=== PATIENT | male | born 1985 | race Caucasian/White ===

== ENCOUNTER 2020-03-23 15:47 | Emergency (ER) | payer SELFPAY ==
[~2020-03-23] VITALS: Ht 170.2 cm; Wt 67.1 kg
[2020-03-23 16:10] VITALS: BP 119/78
--- NOTE | 2020-03-23 16:28 | NUR ---
PT IN TENT FOR COVID PRECAUTIONS
--- NOTE | 2020-03-23 16:37 | NUR ---
34 Y/O MALE FROM HOME C/O ANXIETY WITH SOB, STATES HE IS FEELING ANXIOUS BECAUSE IS COVID+. RR EVEN AND UNLABORED, AWAKE AND ALERT. NO C/O PAIN. VSS MEDHX: DENIES
--- NOTE | 2020-03-23 16:56 | NUR ---
COVID 19 SWAB COLLECTED
--- NOTE | 2020-03-23 16:56 | NUR ---
Patient discharged with v/s stable. Written and verbal after care instructions given and explained. Patient alert, oriented and verbalized understanding of instructions. Ambulatory with steady gait. All questions addressed prior to discharge. ID band removed. Patient advised to follow up with PMD. Rx of ROBITUSSIN 10MG AND ACETAMINOPHEN 500MG given. Patient educated on indication of medication including possible reaction and side effects. Opportunity to ask questions provided and answered.
[2020-03-23 16:57] VITALS: BP 119/78
== END 2020-03-23 16:56 | disposition home or self-care (01) ==
LOC: MED 15:47 → EEVIPCON 15:47 → MED 16:56
DX: B34.9 Viral infection, unspecified (principal); Z20.828 Contact with and (suspected) exposure to other viral communicable diseases; F41.9 Anxiety disorder, unspecified
CPT/HCPCS: 99283; U0003

== ENCOUNTER 2020-04-30 04:05 | Inpatient (IN) | payer OTHER, SELFPAY ==
--- NOTE | 2020-04-23 19:15 | NUR ---
RECEIVED PT AAOX4 , NID - O2 SAT WNL , IV SITE INTACT AND PATENT ON TELE MONITOR - ST , W/ ON GOING K+ RIDER TIV , - C/O OF PAIN ON IV SITE - IV SITE ASSESSED - STILL IN GOOD SHAPE - WILL REFER . SAFETY MEASURES IN PLACE - FALL RISK - CALL LIGHT / URINAL WITHIN REACH - REMINDS HIM TO USE OF CALL LIGHT WHEN HE WANT TO TO TO REST ROOM . PLAN OF CARE DISCUSSED AND VERBALIZE UNDERSTANDING . WILL CONT. TO MONITOR.
[~2020-04-30] VITALS: Ht 172.7 cm; Wt 67.6 kg
[2020-04-30] MEDS: POTASSIUM CHLORIDE 40 MEQ, LIDOCAINE MPF 1% 25 MG in NACL 0.9% 250 ML IV SCH ×2 (00:23→17:31)
--- NOTE | 2020-04-30 04:11 | NUR ---
PT ELEAZAR BLS. TAKEN TO BED 8
--- NOTE | 2020-04-30 04:11 | NUR ---
34 Y/O MALE BIBA C/O BILAT LEG WEAKNESS X 2HRS AGO. DENIES PAIN BUT C/O NUMBNESS SENSATION. FAST SCREEN IS NEG. 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 A&OX4. DENIES ANY TRUAMA OR INJURY. GAIT IS IMPAIRED. CMS INTCT ON BILAT ARMS. CAP REFILL < 3. SENSATION INTACT ON BILAT FEET BUT UNABLE TO MOVE BILAT LEGS. TESTED KNEE REFLEXES AND HAD NO REACTION. MOTOR AND SENSATION IMPAIRED ON BILAT LEGS FROM WAIST TO ANKLE. RT LEG IS WORSE. NKDA. PMH; HYPERTHYROID, GASTRITIS.
[2020-04-30 04:12] VITALS: BP 138/92
--- NOTE | 2020-04-30 04:28 | NUR ---
Dr. Mata examining patient.
--- NOTE | 2020-04-30 04:55 | NUR ---
PT TAKEN TO CT [facility]IA [facility].
--- NOTE | 2020-04-30 04:58 | NUR ---
BLOOD TAKEN TO LAB.
[2020-04-30 05:03] LABS: BASOPHILS % (AUTO) 0.4 % (0.0-2.0); EOSINOPHILS # (AUTO) 0.1 K/uL (0-0.4); HEMATOCRIT 40.7 % (36-52); HEMOGLOBIN 14.1 g/dL (12.0-18.0); LYMPHOCYTES # (AUTO) 1.7 K/uL (2.0-11.5); LYMPHOCYTES % (AUTO) 36.9 % (20.5-51.1); MEAN CORPUSCULAR HEMOGLOBIN 29 pg (27-31); MEAN CORPUSCULAR HGB CONC 35 g/dL (33-37); MEAN CORPUSCULAR VOLUME 83.1 fL (80-94); MONOCYTES # (AUTO) 0.4 K/uL (0.8-1.0); MONOCYTES % (AUTO) 8.6 % (1.7-9.3); NEUTROPHILS # (AUTO) 2.4 K/uL (1.8-7.7); NEUTROPHILS % (AUTO) 52.1 % (42.2-75.2); PLATELET COUNT (AUTO) 207 K/uL (140-450); RED BLOOD CELL COUNT(AUTO) 4.89 MIL/uL (4.20-6.10); RED CELL DISTRIBUTION WIDTH 13.1 % (11.6-13.7); WHITE BLOOD COUNT (AUTO) 4.6 K/uL (4.8-10.8)
--- NOTE | 2020-04-30 05:13 | NUR ---
PT RETURNED BACK FROM CT VIA [facility].
[2020-04-30 05:16] LABS: ALBUMIN 3.8 g/dL (3.4-5.0); CARBON DIOXIDE 25.5 mmol/L (21-32); CREATININE 0.7 mg/dL (0.6-1.3); TOTAL BILIRUBIN 0.8 mg/dL (0.0-1.0)
--- NOTE | 2020-04-30 05:25 | NUR ---
CRITICAL LAB VALUE REPORTING: K+ 1.5, JUAN M NELSON MADE AWARE.
[2020-04-30 05:26] LABS: POTASSIUM 1.5 mmol/L (3.5-5.1)
[2020-04-30] MEDS ORDERED: POTASSIUM CHL 20 MEQ/NACL 0.9% 1,000 ML IV ONE (05:35)
[2020-04-30] MEDS ORDERED: POTASSIUM CHL 20 MEQ/D5-1/2NS 1,000 ML IV ONE ×2 (05:38→06:45)
[2020-04-30] MEDS: POTASSIUM CHL 20 MEQ/D5-1/2NS 1,000 ML IV ONE ×2 (05:57→06:02)
--- NOTE | 2020-04-30 06:15 | NUR ---
RECEIVED PT FROM [facility] ER NURSE. ARRIVED VIA GURNEY. PT ON TELE MONITOR SINUS RHYTHM. AOX4 ON ROOM AIR. RESPIRATIONS EVEN AND UNLABORED. NO S/S RESPIRATORY DISTRESS. DENIES PAIN. GENERALIZED WEAKNESS ON TOD LOWER EXTREMITIES. IV SITE ON LEFT AC 20G RUNNING FLUIDS PER MD. SKIN WARM, DRY, AND INTACT. VS FOLLOWS: BP 136/82, HR 89, TEMP 98.4, O2 SAT 99%, RR 20. BED ON LOW POSITION, SIDE RAILS UPX2, CALL LIGHT WITHIN REACH. ORIENTED TO ROOM AND HOSPITAL. WILL CONTINUE TO MONITOR
--- NOTE | 2020-04-30 06:15 | NUR ---
Patient will be admitted to care of DR. FRANCIS. Admited to TELE. Will go to room 103B. Belongings list completed. Report to ANTELMO DECKER.
--- NOTE | 2020-04-30 07:15 | NUR ---
ENDORSED PT TO DAY RN FOR CONTINUITY OF CARE.
--- NOTE | 2020-04-30 07:17 | NUR ---
RECEIVED ENDORSEMENT FROM WORKERS COMPENSATION COORDINATOR NURSE, CLARIBEL 34 YEAR OLD, MALE, AWAKE, ALERT, ORIENTEDX4, BREATHING SPONTANEOUSLY AT ROOM AIR, NOT IN DISTRESS NOTED. WITH ONGOING IV FLUID WITH D5 0.45%NS 100ML+20Meq POTASSIUM CHLORIDE AT 100ML/HOUR INFUSING WELL AT LEFT ANTECUBITAL VEIN G20, NO INFILTRATION NOTED. SAFETY MEASURES IN PLACE AND CONTINUE TO MONITOR.
--- NOTE | 2020-04-30 09:05 | NUR ---
AWAKE AND ALERT, BREATHING SPONTANEOUSLY AT ROOM AIR, NO INFILTRATION ON THE IV SITE. VERBALIZED FEEL BETTER.
[2020-04-30 10:58] VITALS: BP 136/82
--- NOTE | 2020-04-30 11:33 | NUR ---
CURATOR OF EDUCATION NOTE: Patient's Orientation Unable To Assess Information Provided By BOLIVAR WORKMAN - Comments SW WAS UNABLE TO MEET PATIENT AT BEDSIDE DUE TO MEDICAL CONDITION. Tank Crewmember, Realtionship and Phone Number BOLIVAR SAWANT [phone] [facility] Power of Client Service Associate No Does Patient Have a POLST No Identifying Problems No Social Work Triggers Is A Social Work Consult Needed No Mandate Report Filed No Explanation Of Identifying Problems PATIENT IS A 34-YEAR-OLD MALE ADMITTED FOR HYPOKALEMIA. PATIENT PRESENTS UNREMARKABLE PMHX. Admitted From Home Pre-Admission Level Of Functioning Status Independent/Ambulatory Prior Resources/Services Used In Last 12 Months No Prior Resources Used Prior DME No Prior DME Used Living Situation Apartment Lives With Family Patient Had Caregiver No Home Support No Caregiver Issues Financial Issues No Known Financial Issue Referral To The Financial Counselor Needed No Factors/Needs No D/C Needs Identified Pt/Rep Participated In Discharge Plan Yes Patient/Family Agress With Discharge Plan Yes Discharge Plan Comments TENTATIVE DISCHARGE PLAN IS FOR PATIENT TO RETURN HOME. DC Plan Status Initiated
--- NOTE | 2020-04-30 13:05 | NUR ---
VOIDED FREELY IN URINAL STRAW YELLOW URINE 500ML NOTED. STILL UNABLE TO WALK VERBALIZED. SAFETY MEASURES PROVIDED, CONTINUE MONITOR.
--- NOTE | 2020-04-30 13:55 | NUR ---
DISCHARGE PLANNING: THIS A 34 Y/O MALE PATIENT FROM HOME, WHO CAME IN DUE TO NEW ONSET OF LEG NUMBNESS AND WEAKNESS. INITIAL DIAGNOSIS OF HYPOKALEMIA. CURRENT LABS INCLUDE WBC 4.6, H/H 14.1/40.7, NA/K 144/1.5, BUN/CREA 10/0.7. HEAD CT NEGATIVE. CXR NEGATIVE. NO CONSULTS AT THIS TIME. DC PLAN BACK TO HOME ONCE STABLE.
--- NOTE | 2020-04-30 14:01 | NUR ---
VOMITED ONCE APPROXIMATELY 50ML WITH FOOD PARTICLES , PEACHES NOTED. KEEP UPRIGHT POSITION AND EMESIS BAG PROVIDED. NO ORDERED PRN MEDICATION FOR VOMITING. DR. FRANCIS NOTIFIED THROUGH TEXT MESSAGE. CONTINUE MONITOR.
[2020-04-30] MEDS ORDERED: ONDANSETRON 4 MG/2 ML VIAL IVP PRN (14:45)
--- NOTE | 2020-04-30 15:17 | NUR ---
PATIENT HAS BEEN SCREENED AND CATEGORIZED MODERATE NUTRITION RISK. PATIENT WILL BE SEEN WITHIN 3-5 DAYS OF ADMISSION. 05/02/20 05/04/[address]
--- NOTE | 2020-04-30 15:30 | NUR ---
PATIENT UNABLE TO FINISH HIS LUNCH EARLIER DUE TO VOMITING. NEW SET OF LUNCH WITH HAM SANDWICH SERVED.
[2020-04-30 15:39] LABS: ANION GAP 10.3 (8-16); CARBON DIOXIDE 29.7 mmol/L (21-32); CREATININE 0.8 mg/dL (0.6-1.3)
--- NOTE | 2020-04-30 16:10 | NUR ---
ABLE TO CONSUMED HALF OF HAM SANDWICH WITH OUT VOMITING NOTED.
[2020-04-30] MEDS ORDERED: NACL 0.9% IV ONE (16:25)
[2020-04-30] MEDS ORDERED: POTASSIUM CHLORIDE IV ONE (16:25)
[2020-04-30] MEDS ORDERED: NACL 0.9% 1,000 ML IV SCH (16:25)
[2020-04-30] MEDS ORDERED: LIDOCAINE MPF IV ONE (16:25)
[2020-04-30 16:47] VITALS: BP 123/68
--- NOTE | 2020-04-30 17:31 | NUR ---
K-RIDER GIVEN FOR POTASSIUM OF 2.0. NO SIGNS OF DISTRESS NOTED. PATIENT ABLE TO AMBULATE TOWARDS RESTROOM, COMPLAINS OF SLIGHT PAIN ON LEFT LOWER LEG BUT REFUSES ANY MEDICATION. WILL CONTINUE TO MONITOR.
--- NOTE | 2020-04-30 19:15 | NUR ---
ENDORSED TO CAR SEAT MAKER NURSE FOR CONTINUITY OF CARE IN STABLE CONDITION
[2020-04-30 20:00] VITALS: BP 99/60
[2020-04-30] MEDS: NACL 0.9% 1,000 ML IV SCH (20:33)
[2020-04-30] MEDS ORDERED: POTASSIUM CHLORIDE 40 MEQ, LIDOCAINE MPF 1% 25 MG in NACL 0.9% 250 ML IV PRN (20:35)
[2020-04-30] MEDS ORDERED: ZOLPIDEM 5 MG TAB PO PRN (20:35)
[2020-04-30] MEDS ORDERED: DOCUSATE SODIUM 100 MG GELCAP PO PRN (20:35)
[2020-04-30] MEDS ORDERED: ONDANSETRON 4 MG/2 ML VIAL IM/IVP PRN (20:35)
[2020-04-30] MEDS ORDERED: guaiFENesin DM 200/20 MG-10 ML 10 ML UDC PO PRN (20:35)
[2020-04-30] MEDS ORDERED: HYDROcodone/APAP 7.5/325 MG 1 TAB PO PRN (20:35)
[2020-04-30] MEDS ORDERED: ACETAMINOPHEN 325 MG TAB PO PRN (20:35)
[2020-04-30] MEDS ORDERED: ACETAMINOPHEN 325 MG TAB ONE (21:02)
[2020-04-30 21:26] LABS: AMYLASE 50 U/L (25-115); CHOL/HDL RATIO 2.6 (1-4.5); FREE T4 (FREE THYROXINE) 3.66 ng/dL (0.76-1.46); HDL CHOLESTEROL 38 mg/dL (40-60); LDL (CALC) 52 mg/dL (60-100); LIPASE 86 U/L (73-393); MAGNESIUM 1.5 mg/dL (1.8-2.4); PHOSPHORUS 2.3 mg/dL (2.5-4.9); THYROID STIMULATING HORMONE < 0.01 uIU/mL (0.34-3.74); TRIGLYCERIDES 52 mg/dL (30-150)
[2020-04-30 21:39] LABS: PROTHROMBIN TIME 10.6 secs (10.8-13.4)
[2020-04-30 21:52] LABS: APPEARANCE,URINE CLEAR (CLEAR); BILIRUBIN,URINE NEGATIVE (NEGATIVE); BLOOD, URINE NEGATIVE (NEGATIVE); COLOR,URINE YELLOW (YELLOW); LEUKOCYTE ESTERASE ,URINE NEGATIVE (NEGATIVE); NITRITE, URINE NEGATIVE (NEGATIVE); PH,URINE 7.5 (5.0-9.0); UGLUCOSE NEGATIVE (NEGATIVE)
--- NOTE | 2020-04-30 22:00 | NUR ---
OFFER PAIN MED FOR PAIN IV SITE - HE REFUSE HE SAID THE PAIN NOW IS BEARABLE COMPARE THEN IT WAS - WILL RE ASSESS THE IV SITE . WILL CONT. TO MONITOR .
[2020-04-30 22:11] LABS: BARBITURATE, URINE NEGATIVE ng/ml (NEG <=200); BENZODIAZEPINE, URINE NEGATIVE ng/mL (NEG <=200); CANNABINOID, URINE NEGATIVE ng/mL (NEG <=50); COCAINE, URINE NEGATIVE ng/mL (NEG <=300); OPIATE, URINE NEGATIVE ng/mL (NEG <=2000); PHENCYCLIDINE SCREEN,URINE NEGATIVE ng/mL (NEG <=25)
[2020-05-01] VITALS: BP 100/60
--- NOTE | 2020-05-01 | NUR ---
MADE ROUNDS , NO S/SX OF ACUTE DISTRESS NOTED - ON TELE MONITOR - SR. CALL LIGHT WITHIN REACH .
--- NOTE | 2020-05-01 02:00 | NUR ---
SLEEPING . CHEST RISE AND FALL EQUALLY - ON TELE MONITOR . WILL CONT. TO MONITOR . CALL LIGHT / URINAL WITHIN REACH .
[2020-05-01 04:00] VITALS: BP 99/60
--- NOTE | 2020-05-01 04:00 | NUR ---
MADE ROUNDS , NO S/SX OF ACUTE DISTRESS NOTED AT THIS TIME . WILL CONT. TO MONITOR.
--- NOTE | 2020-05-01 06:00 | NUR ---
PT . REQUESTING FOR SHOWER TODAY AM - I TOLD HIM I WILL ASK TO IF HE ALLOW HIM TO HAVE A SHOWER - WILL ENDORSE TO AM SHIFT NURSE .
[2020-05-01 06:41] LABS: BASOPHILS % (AUTO) 0.4 % (0.0-2.0); EOSINOPHILS # (AUTO) 0.1 K/uL (0-0.4); HEMATOCRIT 38.4 % (36-52); HEMOGLOBIN 13.6 g/dL (12.0-18.0); LYMPHOCYTES # (AUTO) 2.5 K/uL (2.0-11.5); LYMPHOCYTES % (AUTO) 54.8 % (20.5-51.1); MEAN CORPUSCULAR HEMOGLOBIN 29 pg (27-31); MEAN CORPUSCULAR HGB CONC 36 g/dL (33-37); MEAN CORPUSCULAR VOLUME 82.7 fL (80-94); MONOCYTES # (AUTO) 0.5 K/uL (0.8-1.0); MONOCYTES % (AUTO) 10.6 % (1.7-9.3); NEUTROPHILS # (AUTO) 1.5 K/uL (1.8-7.7); NEUTROPHILS % (AUTO) 32.2 % (42.2-75.2); PLATELET COUNT (AUTO) 191 K/uL (140-450); RED BLOOD CELL COUNT(AUTO) 4.64 MIL/uL (4.20-6.10); RED CELL DISTRIBUTION WIDTH 13.4 % (11.6-13.7); WHITE BLOOD COUNT (AUTO) 4.6 K/uL (4.8-10.8)
[2020-05-01 06:59] LABS: MAGNESIUM 1.8 mg/dL (1.8-2.4); PHOSPHORUS 3.9 mg/dL (2.5-4.9)
--- NOTE | 2020-05-01 07:30 | NUR ---
ENDORSED TO AM SHIFT - PT - STABLE .
--- NOTE | 2020-05-01 07:30 | NUR ---
RECEIVED PT ON BED AAOX4. NO SOB NOTED. NO C/O PAIN AT THIS TIME. IV TO LAC PATENT AND INTACT. CHEST CLEAR. ABDOMEN SOFT, BOWEL SOUNDS PRESENT. NO EDEMA NOTED. INSTRUCTED PT TO CALL FOR ASSISTANCE, CALL LIGHT WITHIN REACH, PT VERBALIZED UNDERSTANDING.
[2020-05-01 07:36] LABS: ANION GAP 11.9 (8-16); CARBON DIOXIDE 27.8 mmol/L (21-32); POTASSIUM 4.7 mmol/L (3.5-5.1)
[2020-05-01 07:37] LABS: CREATININE 0.6 mg/dL (0.6-1.3)
[2020-05-01 08:00] VITALS: BP 105/59
[2020-05-01] MEDS ORDERED: POTASSIUM CHLORIDE 10 MEQ TABER PO SCH (09:00)
[2020-05-01] MEDS: MAGNESIUM OXIDE 400 MG TAB PO SCH (09:28)
[2020-05-01 12:00] VITALS: BP 118/63
[2020-05-01] MEDS: propylthiouraciL 50 MG TAB PO SCH ×2 (12:09→20:58)
[2020-05-01] MEDS: SODIUM PHOS / POTASSIUM PHOS 1 PKT PDR PO SCH ×2 (12:09→17:18)
--- NOTE | 2020-05-01 13:00 | NUR ---
ULTRASOUND OF THYROID ON GOING AT THE BEDSIDE.
[2020-05-01 16:00] VITALS: BP 124/63
--- NOTE | 2020-05-01 19:00 | NUR ---
PT RESTING. NO SOB NOTED. NO SIGNS OF PAIN. WILL ENDORSE TO NEXT SHIFT NURSE FOR CONTINUITY OF CARE.
--- NOTE | 2020-05-01 19:15 | NUR ---
RECEIVED REPORT FROM AM RN FOR CONTINUITY OF CARE. PT IS STABLE IN NO DISTRESS. RESPIRATION EVEN AND UNLABORED. WILL CONTINUE WITH POC.
[2020-05-01 20:00] VITALS: BP 117/61
--- NOTE | 2020-05-01 20:20 | NUR ---
PT LAYING IN BED IN NO DISTRESS. AWAKE AND ORIENTED X4 COMMUNICATES WANTS/NEEDS EFFECTIVELY. RESPIRATION EVEN AND UNLABORED. V/S:97.1, 90, 22, 117/61, 97% RA. CONTINUES TO RECEIVE IVF NS AT 80 ML/HR. TOLERATED PO MEDICATION. DENIES WEAKNESS HOWEVER ENCOURAGED TO CALL STAFF FOR ASSISTANCE IF NEEDED. ALL SAFETY MEASURES IN PLACE. CALL LIGHT WITHIN REACH.
[2020-05-01] MEDS: NACL 0.9% 1,000 ML IV SCH ×2 (20:57→21:00)
--- NOTE | 2020-05-01 22:25 | NUR ---
PT LAYING IN BED AWAKE WATCHING TV. DENIES ANY DISCOMFORT AT THIS TIME. ALL NEEDS MET. CONTINUES TO RECEIVE NS AT 80ML/HR. CALL LIGHT WITHIN REACH. WILL CONTINUE TO MONITOR.
[2020-05-02] VITALS: BP 111/65
--- NOTE | 2020-05-02 | NUR ---
PT IS RESTING WITH EYES CLOSED. IN NO DISTRESS. RESPIRATION EVEN AND UNLABORED. WILL CONTINUE TO MONITOR. V/S: 98.4, 80, 20, 111/65, 97% RA PAIN 0/10.
--- NOTE | 2020-05-02 02:05 | NUR ---
PT HAS BEEN SLEEPING, AMBULATED TO THE RESTROOM X 1 INDEPENDENTLY NO ISSUES. WILL CONTINUE TO MONITOR. PT IS NOW BACK IN BED, IVF RUNNING CALL LIGHT WITHIN REACH.
[2020-05-02 04:00] VITALS: BP 122/68
--- NOTE | 2020-05-02 04:00 | NUR ---
REMAINS ASLEEP EASILY AROUSABLE. V/S: 98.7, 73, 18, 122/68, 97 % RA PAIN 0/10. DENIES ANY PAIN OR DISCOMFORT AT THIS TIME.
--- NOTE | 2020-05-02 06:12 | NUR ---
RESTING IN BED DENIES ANY DISCOMFORT ALL NEEDS ARE MET AT THIS TIME. WILL CONTINUE TO MONITOR
[2020-05-02 07:12] LABS: BASOPHILS % (AUTO) 0.2 % (0.0-2.0); EOSINOPHILS # (AUTO) 0.1 K/uL (0-0.4); EOSINOPHILS % (AUTO) 2.4 % (0.0-4.0); HEMATOCRIT 39.6 % (36-52); HEMOGLOBIN 13.8 g/dL (12.0-18.0); LYMPHOCYTES # (AUTO) 3.5 K/uL (2.0-11.5); MEAN CORPUSCULAR HEMOGLOBIN 29 pg (27-31); MEAN CORPUSCULAR HGB CONC 35 g/dL (33-37); MEAN CORPUSCULAR VOLUME 83.7 fL (80-94); MONOCYTES # (AUTO) 0.4 K/uL (0.8-1.0); MONOCYTES % (AUTO) 7.2 % (1.7-9.3); NEUTROPHILS # (AUTO) 1.6 K/uL (1.8-7.7); PLATELET COUNT (AUTO) 194 K/uL (140-450); RED BLOOD CELL COUNT(AUTO) 4.73 MIL/uL (4.20-6.10); RED CELL DISTRIBUTION WIDTH 13.3 % (11.6-13.7); WHITE BLOOD COUNT (AUTO) 5.7 K/uL (4.8-10.8)
[2020-05-02 07:32] LABS: CARBON DIOXIDE 25.1 mmol/L (21-32); CREATININE 0.6 mg/dL (0.6-1.3); POTASSIUM 4.1 mmol/L (3.5-5.1)
--- NOTE | 2020-05-02 07:34 | NUR ---
REPORT GIVEN TO AM RN FOR CONTINUITY OF CARE. PT IS STABLE.
[2020-05-02 08:00] VITALS: BP 107/85
[2020-05-02 08:59] LABS: NEUTROPHILS % (AUTO) 28.2 % (42.2-75.2)
[2020-05-02] MEDS: propylthiouraciL 50 MG TAB PO SCH (10:26)
[2020-05-02] MEDS: SODIUM PHOS / POTASSIUM PHOS 1 PKT PDR PO SCH (10:27)
[2020-05-02] MEDS: MAGNESIUM OXIDE 400 MG TAB PO SCH (10:27)
[2020-05-02] MEDS ORDERED: PTU50 PO (10:47)
[2020-05-02] MEDS ORDERED: POTA10TE30 PO (10:48)
--- NOTE | 2020-05-02 12:15 | NUR ---
DISCHARGE INSTRUCTIONS AND NEW PRESCRIPTIONS DISCUSSED TO PT WHICH VERBALIZED FULL UNDERSTANDING OF THE INSTRUCTIONS GIVEN AND THE NEED TO FOLLOW UP OWN PCP WITHIN 7 DAYS. ARM BANDS AND IV REMOVED, CANNULA TIP INTACT. PT MADE AWARE THAT HIS NEW SCRIPTS WERE SENT TO HIS PREFERRED PHARMACY ON FILE, VERBALIZED UNDERSTANDING.
--- NOTE | 2020-05-02 12:30 | NUR ---
PT ESCORTED TO THE FRONT LOBBY IN STABLE CONDITION, AMBULATORY. NO COMPLAINTS MADE. PT IS D/C HOME WITH FAMILY.
[2020-05-02 14:13] LABS: T4 (THYROXINE) 6.7 ug/dL (4.5 - 12.0)
== END 2020-05-02 12:30 | disposition home or self-care (01) | DRG 640 ==
LOC: MED 04:05 → MTU 05:57 → MMU 06:06
PROVIDERS: ADMIT Family Medicine; ATTEND Family Medicine
DX: E87.6 Hypokalemia (principal); G93.41 Metabolic encephalopathy; E05.90 Thyrotoxicosis, unspecified without thyrotoxic crisis or storm; Z86.19 Personal history of other infectious and parasitic diseases; G83.9 Paralytic syndrome, unspecified; E78.2 Mixed hyperlipidemia; E83.39 Other disorders of phosphorus metabolism; E83.42 Hypomagnesemia
CPT/HCPCS: 36415; 70450; 71045; 76536; 80048; 80053; 80305; 81003; 82150; 83036; 83690; 83735; 83880; 84100; 84436; 84439; 84443; 84479; 84484; 85025; 85610; 85730; 87081; 93005; 96360; 99285; J2001; J3480; J7030; Q0092

== ENCOUNTER 2021-12-13 16:30 | Emergency (ER) | payer SELFPAY ==
[~2021-12-13] VITALS: Ht 172.7 cm; Wt 77.1 kg
[~2021-12-13 16:30] MED LIST: POTA10TA70 PO; PTU50 PO
[2021-12-13 16:46] VITALS: BP 147/103
--- NOTE | 2021-12-13 16:51 | NUR ---
Ambulatory to bed 8.
--- NOTE | 2021-12-13 17:02 | NUR ---
36 Y/O MALE C/O NECK PAIN X3 MONTHS. NOTED WITH SMALL BRUISE BY THE BASE OF THE RIGHT SIDE OF THE NECK. HAD ULTRASOUND PERFORMED IN SEPTEMBER THEY FOUND A "BALL" PT STATES 03/26 PAIN. TOLD TO RETURN ER IF PAIN RETURNS. MEDHX: HYPERTHYROIDISM NKA
--- NOTE | 2021-12-13 17:20 | NUR ---
DR VALENTINE AT BEDSIDE FOR ASSESSMENT
[2021-12-13 18:09] LABS: BASOPHILS % (AUTO) 0.4 % (0.0-2.0); EOSINOPHILS # (AUTO) 0.1 K/uL (0-0.4); EOSINOPHILS % (AUTO) 1.8 % (0.0-4.0); HEMATOCRIT 42.8 % (36-52); HEMOGLOBIN 14.7 g/dL (12.0-18.0); LYMPHOCYTES # (AUTO) 2.8 K/uL (2.0-11.5); MEAN CORPUSCULAR HEMOGLOBIN 30 pg (27-31); MEAN CORPUSCULAR HGB CONC 34 g/dL (33-37); MONOCYTES # (AUTO) 0.4 K/uL (0.8-1.0); MONOCYTES % (AUTO) 6.8 % (1.7-9.3); NEUTROPHILS # (AUTO) 3.2 K/uL (1.8-7.7); PLATELET COUNT (AUTO) 241 K/uL (140-450); RED BLOOD CELL COUNT(AUTO) 4.86 MIL/uL (4.20-6.10); WHITE BLOOD COUNT (AUTO) 6.6 K/uL (4.8-10.8)
[2021-12-13 18:38] LABS: ALBUMIN 4.4 g/dL (3.4-5.0); ANION GAP 14.3 (8-16); CARBON DIOXIDE 27.5 mmol/L (21-32); CREATININE 0.9 mg/dL (0.6-1.3); POTASSIUM 3.8 mmol/L (3.5-5.1); TOTAL BILIRUBIN 0.5 mg/dL (0.0-1.0)
--- NOTE | 2021-12-13 18:53 | NUR ---
WHEELED TO CT SCAN, CONSENT IN CHART
--- NOTE | 2021-12-13 19:09 | NUR ---
RETURN FROM CT SCAN
--- NOTE | 2021-12-13 19:14 | NUR ---
Pt report given to LALITO RODRIGES. Transfer of care at this time.
[2021-12-13 20:41] VITALS: BP 140/71
--- NOTE | 2021-12-13 20:42 | NUR ---
Patient discharged with v/s stable. Written and verbal after care instructions given and explained. Patient verbalized understanding. Ambulatory with steady gait. All questions addressed prior to discharge. Advised to follow up with PMD. copies of radiology and lab results given to pt.
== END 2021-12-13 20:25 | disposition home or self-care (01) ==
LOC: MED 16:30
DX: R59.0 Localized enlarged lymph nodes (principal); Z86.39 Personal history of other endocrine, nutritional and metabolic disease; Z79.899 Other long term (current) drug therapy
CPT/HCPCS: 36415; 70491; 80053; 85025; 99285; Q9967